=== PATIENT | male | born 1990 | race Caucasian/White ===

== ENCOUNTER → 2019-07-13 14:37 | Outpatient (BNVA) | payer OTHER, SELFPAY | PROVIDERS: Family Provider Family Medicine; PCP Family Medicine; Visit Provider Specialist | DX: G40.419 Other generalized epilepsy and epileptic syndromes, intractable, without status epilepticus (principal) | CPT/HCPCS: 99213 ==

== ENCOUNTER 2019-11-13 21:06 | Emergency (ER) | payer OTHER, SELFPAY ==
[2019-11-13 21:18] VITALS: BP 133/81; PULSE 72; RESP 16; TEMP 36.9; O2SAT 97; BMI 32.3
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
[2019-11-13 22:37] VITALS: PULSE 76
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
[2019-11-13 22:52] VITALS: BP 147/83; PULSE 77; RESP 16; O2SAT 97
[2019-11-13] MEDS: HYDROcodone-acetaminophen 7.5-325 mg Tablet 1 TAB PO (22:56)
[2019-11-13] MEDS: tetanus-dipt-pertussis 0.5 mL SDV IM (22:57)
--- NOTE | 2019-11-13 23:07 | PC.NURSE ---
PATIENT TO CT
[2019-11-14 00:34] VITALS: BP 166/76; PULSE 55; RESP 16; O2SAT 97
== END 2019-11-14 00:33 | disposition home or self-care (01) ==
PROVIDERS: Emergency Provider Nurse Practitioner Family; PCP Family Medicine
DX: S30.0XXA Contusion of lower back and pelvis, initial encounter (principal); V29.9XXA Motorcycle rider (driver) (passenger) injured in unspecified traffic accident, initial encounter; Z23 Encounter for immunization
CPT/HCPCS: 12345; 72100; 73502; 90471; 90715; 99281; 99283

== ENCOUNTER 2020-07-03 16:10 | Emergency (ER) | payer OTHER, SELFPAY ==
[2020-07-03 16:21] VITALS: BP 154/93; PULSE 70; RESP 14; TEMP 36.8; O2SAT 98; BMI 32.1
--- NOTE | 2020-07-03 17:41 | W.ED.ABDPA2 ---
HPI - Abdominal Pain General: Chief Complaint: Abdominal Pain Stated Complaint: AB PAIN Time Seen by Provider: 07/03/20 17:35 History of Present Illness: HPI narrative: Patient had abdominal pain at work on Friday possibly poor abdominal muscle. He said it hurts worse toward the end day at work. He was doing much better this weekend and went back to work today and now his abdomen started hurting again. Says he does a lot of heavy lifting at work MD elicited complaint: abdominal pain Onset (ago): day(s) Pain Consistency: intermittent Location: RUQ and RLQ Severity: mild Quality: aching Radiation: back (On left upper side) and other Exacerbating factors: movement (Lifting) Relieving factors: rest Context: other (Happened while at work) Associated Symptoms: Reports no associated symptoms; Denies chills, fever(s), nausea and vomiting Review of Systems Const: Denies: fever(s), chills or body aches Eyes: Denies: change in vision or blurry vision ENMT: Denies: throat pain or nasal congestion Card: Denies: chest pain or dyspnea on exertion Resp: Denies: dyspnea, productive cough or non-productive cough GI: Reports: abdominal pain; Denies: nausea or vomiting : Denies: difficulty urinating Musc: Reports: back pain; Denies: extremity pain Skin/Breast: Denies: rash Neuro: Denies: headache(s) Psych: Denies: anxiety or depression Agustin/Lymph: Denies: easy bruising PFSH ED PFSH: Family History Other Stroke Social History Smoking and tobacco status: never smoked Alcohol intake: current Alcohol intake frequency: few times a month Alcohol type: beer Physical Exam Const: COMMON NORMALS: no acute distress, average body habitus and patient oriented x3 HENMT: COMMON NORMALS: normocephalic HEAD & SCALP: normal to inspection and normocephalic FACE & SINUS: normal facial exam Eye: COMMON NORMALS: conjunctivae normal GENERAL EYE: appearance normal, both eyes and all related structures CONJUNCTIVA: Yes conjunctivae normal Neck/C-Spine: COMMON NORMALS: no JVD Chest: COMMONS NORMALS: normal inspection of the chest Resp: COMMON NORMALS: normal respiratory effort and clear to auscultation bilaterally AUSCULTATION: clear to auscultation bilaterally Cardio: COMMON NORMALS: no JVD, regular rate and regular rhythm RATE: regular rate RHYTHM: regular rhythm GI: COMMON NORMALS: Normal to inspection, nondistended, normoactive bowel sounds present PALPATION: Yes Tenderness to palpation present (GI) Extremity: COMMON NORMALS: normal to inspection and full ROM Neuro: COMMON NORMALS: patient oriented x3 Course Vital Signs: Vital signs: Vital Signs Temperature 98.2 F 07/03/20 16:21 Pulse Rate 70 07/03/20 16:21 Respiratory Rate 14 07/03/20 16:21 Blood Pressure 154/93 07/03/20 16:21 Pulse Oximetry 98 07/03/20 16:21 Discharge Plan Discharge Condition: Good Prescriptions: No Action lorazepam [Ativan] 1 mg tablet 1 mg PO .COMPLEX RF: 0 citalopram 40 mg tablet 40 mg PO QDAY Qty: 90 RF: 3 levetiracetam [Keppra XR] 750 mg tablet extended release 24 hr 3,000 mg PO QDAY Qty: 360 RF: 3 ibuprofen 600 mg tablet 600 mg PO Q6H Qty: 30 RF: 0 hydrocodone-acetaminophen 5-325 mg tablet 1 tab PO Q8H PRN (Reason: pain, severe) Qty: 7 RF: 0 Coding Level of Care Code ED Assistant Track Coach for Laura Falcon
[2020-07-03] MEDS: ketorolac 60 mg/2 mL INJ IM (17:50)
[2020-07-03 18:52] LABS: Basophils # 0.1 10^3/uL (0.0-0.1); Basophils % 0.8 %; Eosinophils # 0.3 10^3/uL (0.0-0.8); Eosinophils % 2.9 %; Hematocrit 46.5 % (42.0-52.0); Hemoglobin 15.8 g/dL (11.7-16.6); Lymphocytes % 33.7 %; Mean Corpuscular Hemoglobin 29.6 pg (28.0-34.0); Mean Corpuscular Volume 87.1 fL (80-94); Mean Platelet Volume 10.8 fL (7.4-10.4); Monocytes # 0.6 10^3/uL (0.2-0.9); Monocytes % 7.3 %; Neutrophils # 4.81 10^3/uL (1.8-7.7); Neutrophils % 54.8 %; Nucleated Red Blood Cells % 0 %; Platelet Count 252 10^3/cmm (130-400); Red Blood Count 5.34 10^6/uL (4.1-5.3); White Blood Count 8.8 10^3/uL (4.0-10.0)
[2020-07-03 19:12] LABS: Alanine Aminotransferase 36 U/L (0-41); Albumin Level 4.4 g/dL (3.5-5.2); Alkaline Phosphatase 63 IU/L (40-130); Aspartate Amino Transferase 21 U/L (0-40); Blood Urea Nitrogen 14 mg/dL (6-20); Calcium 9.2 mg/dL (8.5-10.5); Carbon Dioxide 28 mmol/L (22-29); Chloride 101 mmol/L (98-107); Creatinine Clr Calc Pharmacy 151.5567; Globulin 3.1 g/dL (1.3-4.6); Glomerular Filtration Rate 101.2 mL/min (90-130); Glucose 98 mg/dL (65-115); Lipase 30 U/L (13-60); Osmolality Calculated 288 mOsm/kg (285-295); Sodium 139 mmol/L (136-145); Total Bilirubin 0.4 mg/dL (0.15-1.2); Total Protein 7.5 g/dL (6.6-8.7)
[2020-07-03 19:57] VITALS: BP 138/89; PULSE 72; RESP 16; TEMP 36.8; O2SAT 98
[2020-07-03 19:59] VITALS: BP 138/89; PULSE 72; RESP 16; TEMP 36.8; O2SAT 98
== END 2020-07-03 19:59 | disposition home or self-care (01) ==
PROVIDERS: Physician Assistant; Emergency Provider Nurse Practitioner Family; PCP Family Medicine
DX: R10.9 Unspecified abdominal pain (principal)
CPT/HCPCS: 12345; 80053; 83690; 85025; 96372; 99282; 99283; J1885

== ENCOUNTER → 2021-05-01 10:52 | Outpatient (BNVA) | payer OTHER, SELFPAY | PROVIDERS: PCP Family Medicine; Visit Provider Specialist | DX: G40.309 Generalized idiopathic epilepsy and epileptic syndromes, not intractable, without status epilepticus (principal); Z91.19 Patient's noncompliance with other medical treatment and regimen | CPT/HCPCS: 99213; 99214 ==

== ENCOUNTER 2025-06-20 00:48 | Emergency (ER) | payer BC, SELFPAY ==
[2025-06-20 00:55] VITALS: BP 154/95; PULSE 67; TEMP 36.4; O2SAT 99; BMI 28.7
--- OUTSIDE RECORDS SUMMARY | 2025-06-20 00:58 | XMS_ITS | Encounter Summary ---
[facility] Organization [facility] Address [address] 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
--- OUTSIDE RECORDS SUMMARY | 2025-06-20 00:58 | XMS_ITS | Encounter Summary ---
Author Organization [employer] Address [address] 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
--- OUTSIDE RECORDS SUMMARY | 2025-06-20 00:58 | XMS_ITS | Encounter Summary ---
Author Organization [facility] [facility] Address [address] [place] [address] Care Team Providers Care Division Order Technician Name Role Phone Non-Staff, Physician Primary Care Provider Unava ilable Encounter Details Date Type Department Care Team (Late st Contact Info) Description 09/23/2018 Lab Requisition [facility] [address] 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 Gender Identity Not on file Sexual Orientation Not on file Occupation Industry Job Start Date Job End Date Student Not on file Not on file Not on file documented as of this encounter Plan of Treatment Not on file documented as of this encounter Procedures Procedure Name Priority Date/Time Associated Diagnosis Comments HEMOGLOBIN A1C Routine 09/23/2018 8:00 AM CDT LIPID PANEL Routine 09/23/2018 8:00 AM CDT COMPREHENSIVE METABOLIC PANEL Routine 09/23/2018 8:00 AM CDT documented in this encounter Results * HEMOGLOBIN A1C (09/23/2018 8:00 AM CDT) HEMOGLOBIN A1C 5.6 4.0 - 6.0 % 09/24/2018 6:22 AM CDT [facility] EST. AVG GLUCOSE, A1C 114 mg/dL 09/24/2018 6:22 AM CDT [facility] Blood Collection / Unknown 09/23/2018 8:00 AM CDT 09/23/2018 11:33 AM CDT [facility] - 09/24/2018 6:22 AM CDT HGB A1C INTERPRETATION NORMAL: <5.7% PRE-DIABETES: 5.7 - 6.4% DIABETES: 6.5% OR GREATER us Boy Henry DO CHEMISTRY ORDERABLES Final R esult [facility] CLIA# [id number] [address] [place] [address] * (ABNORMAL) LIPID PANEL (09/23/2018 8:00 AM CDT) [facility] Signature CHOLESTEROL 174 <200 mg/dL 09/23/2018 2:18 PM CDT [facility] TRIGLYCERIDE 122 <150 mg/dL 09/23/2018 2:18 PM CDT [facility] HDL 30(L) 40 - 59 mg/dL 09/23/2018 2:18 PM T [facility] LDL CALCULATED 120(H) <100 mg/dL 09/23/2018 2:18 PM CDT [facility] NON-HDL CHOLESTEROL 144(H) <130 mg/dL 09/23/2018 2:18 PM T [facility] Blood Collection / Unknown 09/23/2018 8:00 AM CDT 09/23/2018 11:33 AM CDT [facility] - 09/23/2018 2:18 PM CDT TOTAL CHOLESTEROL mg/dL Desirable <200 Borderline high 200-239 High >=240 TRIGLYCERIDES mg/dL Normal <150 Borderline high 150-199 High 200-499 Very high >=500 HDL CHOLESTEROL mg/dL Low <40 Normal 40-59 Desirable >=60 NON HDL CHOLESTEROL mg/dL Optimal <130 Near Optimal 130-159 Borderline High 160-189 Very High >=190 Calculated LDL mg/dL Optimal <100 Near Optimal 100-129 Borderline High 130-159 High 160-189 Very High >=190 ATPIII Guidelines Reference Ranges for Lipid Panels (NCEP/AMA) us Boy Henry DO CHEMISTRY ORDERABLES Final R esult [facility] CLIA# [id number] [address] [place] [address] * COMPREHENSIVE METABOLIC PANEL (09/23/2018 8:00 AM CDT) SODIUM 140 136 - 145 mmol/L 09/23/2018 2:18 PM CDT [facility] POTASSIUM 4.1 3.5 - 5.1 mmol/L 09/23/2018 2:18 PM CDT [facility] CHLORIDE 102 98 - 107 mmol/L 09/23/2018 2:18 PM CDT [facility] CO2 26 22 - 29 mmol/L 09/23/2018 2:18 PM CDT [facility] CALCIUM 9.3 8.6 - 10.0 mg/dL 09/23/2018 2:18 PM CDT [facility] BUN 17 6 - 20 mg/dL 09/23/2018 2:18 PM CDT [facility] CREATININE 1.11 0.67 - 1.17 mg/dL 09/23/2018 2:18 PM CDT [facility] GLUCOSE 95 74 - 99 mg/dL 09/23/2018 2:18 PM CDT [facility] TOTAL PROTEIN 7.7 6.4 - 8.3 g/dL 09/23/2018 2:18 PM CDT [facility] ALBUMIN 4.7 3.5 - 5.2 g/dL 09/23/2018 2:18 PM CDT [facility] BILIRUBIN TOTAL 0.7 0.2 - 1.0 mg/dL 09/23/2018 2:18 PM CDT [facility] ALKALINE PHOSPHATASE 62 40 - 129 U/L 09/23/2018 2:18 PM CDT [facility] AST 28 10 - 50 U/L 09/23/2018 2:18 PM [facility] ALT 36 <=50 U/L 09/23/2018 2:18 PM T [facility] GFR >60 >=60 mL/min/1.7 3 sq meter 09/23/2018 2:18 PM T [facility] Comment: eGFR has not been validated for use in the elderly (> 70 years of age), women, patients with serious co-morbid conditions, or persons with extremes of body size or muscle mass and should also be interpreted with caution in patients with acute kidney failure, dialysis dependent patients, patients reporting exceptional dietary intake (e.g. vegetarian diet, high protein diets, creatine supplementation), and patients with severe liver disease. Based on National Kidney Disease Education Program If patient is , please refer to the GFR result. GFR, >60 >=60 mL/min/1.7 3 sq meter 09/23/2018 2:18 PM T [facility] ANION GAP 12 9 - 20 mmol/L 09/23/2018 2:18 PM [facility] Blood Collection / Unknown 09/23/2018 8:00 AM CDT 09/23/2018 11:33 AM CDT us Boy Henry DO CHEMISTRY ORDERABLES Final R esult [facility] CLIA# [id number] [address] [place] [address] documented in this encounter Visit Diagnoses Not on filedocumented in this encounter Care Teams Division Order Technician Relationship Specialty Start Date End Date Non-Staff, Physician NO ADDRESS ON FILE PCP - General 02/03/14 documented as of this encounter
--- OUTSIDE RECORDS SUMMARY | 2025-06-20 00:58 | XMS_ITS | Encounter Summary ---
Author Organization [facility] Address 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
--- OUTSIDE RECORDS SUMMARY | 2025-06-20 00:58 | XMS_ITS | Encounter Summary ---
Author Organization [facility] Address [address] [place] [address] Care Team Providers Care Clerk Television Production Name Role Phone Non-Staff, Physician Primary Care Provider Unava ilable Encounter Details Date Type Department Care Team (Latest Contact Info) Description 07/19/1998 Outpatient Historical [facility] Medicine [address] [address] Aurelio Spencer MD [address] [place] [phone] Acute upper respiratory infections of unspecified site (Primary Dx) Social History Tobacco Use Types Packs/Day Years Used Date Smoking Tobacco: Never Assessed Sex and Gender Information Value Date Recorded Sex Assigned at Not on file Legal Sex Male 6:05 AM BACKER UP Gender Identity Not on file Sexual Orientation Not on file documented as of this encounter Plan of Treatment Not on file documented as of this encounter Visit Diagnoses Diagnosis Acute upper respiratory infections of unspecified site- Primary documented in this encounter Care Teams Clerk Television Production Relationship Specialty Start Date End Date Non-Staff, Physician NO ADDRESS ON FILE PCP - General 02/03/14 documented as of this encounter
--- OUTSIDE RECORDS SUMMARY | 2025-06-20 00:58 | XMS_ITS | Encounter Summary ---
Author Organization [facility] Address 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
--- OUTSIDE RECORDS SUMMARY | 2025-06-20 00:58 | XMS_ITS | Encounter Summary ---
Author Organization [facility] Address 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
--- OUTSIDE RECORDS SUMMARY | 2025-06-20 00:58 | XMS_ITS | Encounter Summary ---
Author Organization [employer] Address 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
--- OUTSIDE RECORDS SUMMARY | 2025-06-20 00:58 | XMS_ITS | Clinical Summary ---
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 Martinez Immunizations Immunization Administration Dates Next Due (ADACEL/BOOSTRIX)(10 YR UP) TDAP VACCINE, 0.5ML, IM 01/27/2008 Dt Dtp Dtap Vaccine 01/27/2008 Family History Medical History Relation Name Comments Asthma Neg Hx Cancer Neg Hx Diabetes Neg Hx Heart Failure Neg Hx High Cholesterol Neg Hx Hypertension Neg Hx Stroke Neg Hx Thyroid Disease Neg Hx Relation Name Status Comments Brother Alive Father Alive Mother Alive Social History Tobacco Use Types Packs/Day Years Used Date Smoking Tobacco: Never Alcohol Use Standard Drinks/Week Comments No 0 (1 standard drink = 0.6 oz pur e alcohol) Sex and Gender Information Value Date Recorded Sex Assigned at Not on file Legal Sex Male 6:05 AM [employer] Gender Identity Not on file Sexual Orientation Not on file Occupation Industry Job Start Date Job End Date Student Not on file Not on file Not on file Last Filed Vital Signs Vital Sign Reading Time Taken Comments Blood Pressure 132/80 03/22/2009 3:37 PM CDT Pulse - - Temperature 37 C (98.6 F) 03/22/2009 3:37 PM CDT Respiratory Rate - - Oxygen Saturation - - Inhaled Oxygen Concentration - - Weight 84.8 kg (187 lb) 03/22/2009 3:37 PM CDT Height - - Body Mass Index - - Plan of Treatment Health Maintenance Due Date Last Done Comments HEPATITIS B VACCINES (1 of 3 - 19+ 3-dose series) 10/22/2011 DTAP/TDAP/TD VACCINES (2 - Tdap) 01/26/2018 01/27/20 08, 01/27/2008 INFLUENZA VACCINE (#1) 2025 HPV VACCINES (No Doses Required) Completed Care Teams Filter Operator Relationship Specialty Start Date End Date Non-Staff, Physician NO ADDRESS ON FILE PCP - General 02/03/14
--- OUTSIDE RECORDS SUMMARY | 2025-06-20 00:58 | XMS_ITS ---
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 Name Role Phone MD ENRRIQUE SANCHEZ Unavailable [phone] SALONI REESE Unavailable ALLERGIES, ADVERSE REACTIONS AND ALERTS Allergy Name Allergy Date Allergy Status Allergy Severity Allergy Reaction NO KNOWN DRUG ALLERGIES MEDICATIONS RxNorm Brand Name Prescription Ordered Value Order Unit Start Date Date Status Fill Status Indications [id number] levetira cetam 750 mg tablet extended release 24 hr SIG: levetiracetam 750 mg oral tablet extended release 24 hr, 30 days, Dispense #120 Tablet, 6 RefillsDirecti ons: TAKE FOUR TABLETS BY MOUTH DAILY AT 530 in THE morning 120 tablet extended release 24 hr 2022 Historic FreeStyl e Ramon 3 Sensor device SIG: FreeStyle Ramon 3 Sensor miscellaneous device, 14 days, Dispense #1 Kit, 3 Refills, Directions: Use as directed by physician. 1 device 2023 Current [id number] levetira cetam ER 750 mg tablet,e xtended release 24 hr 750 mg tablet extended release 24 hr SIG: levetiracetam 750 mg oral tablet extended release 24 hr, 30 days, Dispense #120 Tablet, 11 Refills, Directions: TAKE FOUR TABLETS BY MOUTH AT 530 in THE morning. 120 tablet extended release 24 hr 2023 Historic [id number] levetira cetam 750 mg tablet extended release 24 hr SIG: levetiracetam 750 mg oral tablet extended release 24 hr, 30 days, Dispense #120 Tablet, 12 Refills, Directions: TAKE FOUR TABLETS BY MOUTH AT 530 in THE morning. 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,not ntrct,w/o stat epi Local-rel idio epi w seiz of loc onst,not ntrct,w/o stat epi Current 09/29/2024 E55.9-Vitamin D deficiency, unspecified Vitamin D deficiency, unspecified Current 09/29/2024 PROCEDURES Procedure Description Date Notes NO PROCEDURES PERFORMED ASSESSMENTS Assessment None PLAN OF TREATMENT Assessment Planned Activity LOINC Planned Erwin e None CONSULTATION NOTE Note Author Date None HISTORY AND PHYSICAL NOTE Note Author Date None PROGRESS NOTE Note Author Date None DISCHARGE SUMMARY Note Author Date None CHIEF COMPLAINT AND REASON FOR VISIT FUNCTIONAL STATUS Functional or Cognitive Find ing None MENTAL STATUS Cognitive Finding None ENCOUNTERS Encounter Type Provider Diagnoses Start Date Location Disc harged to None SOCIAL HISTORY Social Status Observation Unknown if ever smoked Sex: Male 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
[2025-06-20 03:19] LABS: Rapid Strep A Test Negative (Negative)
[2025-06-20 03:23] VITALS: BP 138/85; PULSE 70; O2SAT 97
[2025-06-20 03:25] VITALS: RESP 18
--- NOTE | 2025-06-20 03:48 | W.ED.GENADLT ---
HPI - General Adult General: Chief complaint: Fever Stated complaint: Sore TYhroat and Ear Pain Time Seen by Provider: 06/20/25 03:03 History of Present Illness: Patient is a 34-year-old male presenting with a chief complaint of fever at home for 2 days, sore throat, left ear pain. Patient states his has had a fever as well and upper respiratory symptoms. Patient denies chest pain, shortness of breath, cough. Patient denies abdominal pain, nausea, vomiting, diarrhea, dysuria or rash. He states that ear pain has been worsening, he is unable to sleep despite taking ibuprofen and Tylenol. He does not take any medications aside for Keppra from epilepsy. Related Data Previous Rx's ?Medication ?Instructions ?Recorded ibuprofen 600 mg tablet 600 mg PO Q6H #30 tabs 11/13/19 celecoxib 100 mg capsule (Celebrex) 100 mg PO BID #10 caps 07/03/20 citalopram 40 mg tablet 40 mg PO DAILY@0530 #90 tabs 08/27/21 levetiracetam 750 mg See Rx Instructions .Route 04/04/23 tablet,extended release 24 hr .COMPLEX #120 tabs amoxicillin 875 mg-potassium 1 tab PO BID 7 days #14 tabs 06/20/25 clavulanate 125 mg tablet Allergies Allergy/AdvReac Type Severity Reaction Status Date / Time No Known Allergies Allergy Verified 06/20/25 00:59 [facility] ED PFSH: Family History Other Stroke Social History Smoking and tobacco/nicotine status: never used tobacco/nicotine Alcohol intake: current Alcohol intake frequency: few times a month Alcohol type: beer Substance/Drug Use: never Physical Exam Narrative: EXAM NARRATIVE: Vital signs were reviewed. Patient is alert and oriented. Right TM is normal. Left TM is quite erythematous and mildly bulging. There is no tonsillar swelling, exudates or significant erythema in the posterior oropharynx. Neck is supple, no meningeal signs. Patient is breathing comfortably, no increased WOB or accessory muscle use. SpO2 is above 95% on RA. Patient has clear lungs b/l, no rhonchi, wheezing or crackles. No hypotension or tachycardia. Abdomen is soft, nondistended and nontender. Patient is moving all extremities, no deformity or gross injury. No lower extremity edema or asymmetry. Course Vital Signs: Vital signs: Vital Signs Temperature 97.6 F 06/20/25 00:55 Pulse Rate 70 06/20/25 03:23 Respiratory Rate 18 06/20/25 03:25 Blood Pressure 138/85 06/20/25 03:23 Pulse Oximetry 97 06/20/25 03:23 Oxygen Delivery Me thod Room Air 06/20/25 03:23 MDM - General Adult Medical Decision Making 34yo previously healthy male with a chief complaint of sore throat, left ear pain, fever at home for several days. Differential diagnosis includes, but is not limited to, viral upper respiratory infection, streptococcal pharyngitis, otitis media, bronchiolitis, asthma/reactive airway disease, pneumonia, other. Patient was evaluated with strep screen which is negative. Clinically, presentation may be consistent with left otitis media. He was treated with IM Toradol, p.o. Tylenol and started on Augmentin. At this time he is appropriate for outpatient management. Patient was counseled on supportive care at home, given return precautions and discharged in stable condition with recommendation for outpatient follow-up with primary care nurse or doctor. Lab Data Laboratory Results Group A Strep Rapid Negative (Negative) 06/20/25 02:57 No radiology studies performed this visit Discharge Plan Discharge Patient Disposition: Home Clinical Impression: Acute left otitis media Upper respiratory infection Qualifiers: URI type: unspecified URI Qualified Code(s): J06.9 - Acute upper respiratory infection, unspecified Condition: Stable Prescriptions: New amoxicillin-pot clavulanate 875-125 mg tablet 1 tab PO BID 7 Days Qty: 14 0RF No Action citalopram 40 mg tablet 40 mg PO DAILY@0530 Qty: 90 2RF levetiracetam 750 mg tablet extended release 24 hr See Rx Instructions .ROUTE .COMPLEX Qty: 120 5RF Dose Instruction: TAKE FOUR TABLETS BY MOUTH DAILY AT 5:30 IN THE MORNING Rx Instructions: TAKE FOUR TABLETS BY MOUTH DAILY AT 5:30 IN THE MORNING ibuprofen 600 mg tablet 600 mg PO Q6H Qty: 30 0RF Celebrex 100 mg capsule 100 mg PO BID Qty: 10 0RF Discharge Orders: Discharge ED (Routine); Ordered 06/20/25 Ordered By: Teresa Conenll Referrals: Shawn Cash Jr, MD [Primary Care Provider, Family Practice] Patient Instructions: Opioid Safety, Pain Management, Patient Portal & Mariia Instructions, Ear Infection (ED), Upper Respiratory Infection - Adult Activity Restrictions/Additional Instructions: Please continue to monitor your condition closely at home. Take Ibuprofen 400mg and Tylenol 500-1000mg every six hours for pain and inflammation. STart your antibiotics as prescribed. If your condition worsens or additional concerns arise, please return promptly to the emergency department for reassessment. Follow up with your primary care doctor in one week. 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
[2025-06-20 04:17] LABS: Respiratory Syncytial Virus Ce Negative (Negative); SARS-CoV-2 PCR Negative (Negative)
[2025-06-20 04:30] VITALS: BP 121/73; PULSE 66; O2SAT 95
== END 2025-06-20 04:32 | disposition home or self-care (01) ==
PROVIDERS: Physician Assistant; Emergency Provider Emergency Medicine; PCP Family Medicine
DX: H66.92 Otitis media, unspecified, left ear (principal); J06.9 Acute upper respiratory infection, unspecified
CPT/HCPCS: 87081; 87637; 87880; 96372; 99284; J1885; J9999